=== PATIENT | female | born 1990 | race Caucasian/White ===

== ENCOUNTER 2017-05-14 19:43 | Emergency (ER) | payer BC ==
[~2017-05-14] VITALS: Ht 170.2 cm; Wt 82.1 kg
[2017-05-14 19:55] VITALS: BP 135/88
== END 2017-05-15 00:15 | disposition home or self-care (01) ==
LOC: ED 21:05
DX: M79.642 Pain in left hand (principal)
CPT/HCPCS: 82962; 99284

== ENCOUNTER 2017-06-26 16:23 | Emergency (ER) | payer BC ==
[~2017-06-26] VITALS: Ht 170.2 cm; Wt 83.0 kg
[2017-06-26 17:52] LABS: BLOOD UREA NITROGEN 18 mg/dL (7-18)
[2017-06-26 17:59] LABS: IS PT STATUS REG ER OR PRE ER? YES
[2017-06-26 18:14] VITALS: BP 146/99
[2017-06-26] MEDS ORDERED: NORG1TAB61 PO (18:22)
[2017-06-26 18:23] LABS: HEMATOCRIT 41.9 % (34.6-47.8); HEMOGLOBIN 14.3 g/dL (11.7-16.4); WHITE BLOOD COUNT 10.2 x10^3/uL (3.4-10)
[2017-06-26] MEDS ORDERED: OMNIPAQUE 350 MG/ML, 100ML BOTTLE ONE (18:39)
== END 2017-06-26 19:43 | disposition home or self-care (01) ==
LOC: ED 19:14
DX: R07.89 Other chest pain (principal)
CPT/HCPCS: 36415; 71020; 71275; 80048; 82040; 84484; 84703; 85025; 85379; 93005; 99285; Q9967